=== PATIENT | female | born 1995 | race Caucasian/White ===

== ENCOUNTER 2024-04-01 13:53 | Emergency (ER) | payer OTHER, SELFPAY ==
[2024-04-01 13:57] VITALS: BP 130/85
[2024-04-01 14:12] VITALS: BP 121/72
--- NOTE | 2024-04-01 14:18 | ED.GENMED ---
History of Present Illness
General
Chief Complaint: Chest Pain
Source: patient
Time Seen by Provider: 04/01/24 14:06
History of Present Illness
History of Present Illness:
28yoF with a history of POTS presenting with her mother for evaluation of chest pain. Symptoms began last night while she was lying in bed. She reports an intense sharp, stabbing pain in the left side of her chest. Her heart rate was elevated in the
130s last night when her symptoms began. She reports lightheadedness yesterday but denies any syncope. The pain continues today but is now mild. The pain is worse with movement and activity. She also reports shortness of breath. Patient was seen at
urgent care prior to arrival and was sent to the ED for evaluation. Patient is on oral contraceptives. No recent travel or illness.
Phy Exam
General Physical Exam
General Presentation: well appearing and no apparent distress
General age: appears stated age
General Skin: warm and dry
General Habitus: normal
General Mental: alert
Cardiovascular Exam
Cardiovascular Exam: regular rate/rhythm, no edema and no murmur
Pulmonary Exam
Pulmonary Exam: lungs clear, no respiratory distress, no rales, no crackles, no wheezing and other (+Mild tenderness to the L chest. No skin changes.)
David Coma Scale
Eye Opening: Spontaneous
Verbal Response: Oriented
Motor Response: Obeys Commands
GCS Total Score: 15
Skin Exam
Skin Exam: normal color and warm/dry
Psychiatric Exam
Psychiatric Exam: normal mood/affect
Scores
Heart Score for Chest Pain Patients
STEMI patient?: No
History: Slightly or Non-Suspicious
ECG: Normal
Age: </= 45 years
Risk Factors: No Risk Factors
Troponin: </= Normal Limit
Heart Score for Chest Pain Patients: 0
Heart Score Risk: 2.5% MACE over next 6 weeks
Course
Orders/Labs/Results
Orders:
Orders
04/01/24 13:54
Electrocardiogram (*1) Urgent
Reason for Study: Chest Pain
EKG- Treatment ONCE
04/01/24 14:18
Cardiac Monitoring- Treatment ONCE
Test Result ONCE
CR Chest - 2 Views Urgent
Comment:
Reason For Exam: CP
04/01/24 14:21
0.9% Sodium Chloride 1000 ml [Nss] 1,000 ml IV BOLUS
04/01/24 14:23
Complete Blood Count/With Diff Urgent
Comprehensive Metabolic Panel Urgent
D-Dimer Urgent
HCG, Serum Qualitative Screen Urgent
Troponin I Urgent
Abnormal Lab Results
04/01/24
14:23
RBC 3.95 L 10^6/uL
(4.20-5.40)
Hct 34.4 L %
(37.0-47.0)
Absolute Monos (auto) 0.7 H 10^3/uL
(0.1-0.6)
Monocytes % 9.9 H %
(1.7-9.3)
04/01/24 14:23
04/01/24 14:23
Vital Signs
Initial and Last Documented VS:
Initial Vital Signs
Temp Pulse Resp BP Pulse Ox
98.1 F 77 18 130/85 99
04/01/24 13:57 04/01/24 13:57 04/01/24 13:57 04/01/24 13:57 04/01/24 13:57
Last Documented Vital Signs
Temp Pulse Resp BP Pulse Ox
98.1 F 75 19 121/72 100
04/01/24 13:57 04/01/24 14:45 04/01/24 14:45 04/01/24 14:12 04/01/24 14:45
MDM/Problems Addressed
Differential Diagnosis Includes:
28yoF here with L sided chest pain x 1 day. Associated with SOB and lightheadedness. Sent here by urgent care. Hx of POTS. She is afebrile and hemodynamically stable. She is well appearing in no distress. There is mild L sided chest wall tenderness
on exam. Exam is otherwise reassuring. Differential diagnosis includes but is not limited to: costochondritis, pericarditis, PE, less likely ACS
Initial ED plan: Check cardiac labs, D-dimer, EKG, and CXR. IV fluid bolus.
*EKG
Interpreted by ED Provider?: Yes
EKG Intrepretation Date: 04/01/24
Heart Rate: 72
Rate: normal
Rhythm: sinus
[place]: normal axis
Interval: normal interval
QRS Pattern: normal QRS and low voltage
Ischemia: no ischemia
*Critical Care Note
Total Time (30-74mins, 75-104mins- exclusive of procedures): Not Applicable
Update Note
Update Note:
Labs overall unremarkable. EKG shows normal sinus rhythm without ischemic changes and troponin is within normal limits. D-dimer normal making PE very unlikely. Chest x-ray is clear without infiltrates. No telemetry events during ED stay. HEART
score is 0. No indication for admission. Advised f/u with PCP and ED return precautions discussed. She was discharged in stable condition.
ED Attending Note
-
Portions of this chart may have been created with voice recognition software.� Occasional wrong word or��sound alike� substitutions may have occurred due to the inherent limitations of voice recognition software.
Discharge Plan
Departure
Patient Disposition: Home (Routine Discharge)
Date of Disposition: 04/01/24
Time of Disposition: 15:54
Patient with high blood pressure during this ER visit?: No
Discharge Problem:
Chest pain
Instructions: Chest Pain PCP Follow Up
Referrals:
Saba Lawton PA-C [Family Provider] -
Activity Restrictions/Additional Instructions:
Please follow-up with your family doctor. Return to the ER with any new or worsening symptoms.
Interventions
Interventions:
*Risk Screen - Suicide Last Done: 04/01/24 13:55
*General Assessment Last Done: 04/01/24 13:57
*Neglect/Abuse Screening Last Done: 04/01/24 14:08
ED- Fall Risk Assessment Last Done: 04/01/24 14:08
*ED COVID-19 Vaccine History Last Done: 04/01/24 14:08
*Nursing Disposition Last Done: 04/01/24 16:02
ED- Cardiac Assessment Last Done: 04/01/24 14:08
Discharge Date and Time
Discharge Date/Time: 04/01/24 16:03
Print Language: CITIZ[place]
[2024-04-01] MEDS: NSS 1000 IV (14:23)
[2024-04-01 14:32] LABS: % Basophils 0.7 % (0-2); % Eosinophils 1.9 % (0-6); % Immature Granulocytes 0.1 % (0-0.5); % Lymphocytes 31.6 % (20.5-51.1); % Monocytes 9.9 % (1.7-9.3); % Neutrophils 55.8 % (42.2-75.2); Absolute Basophils 0.1 10^3/uL (0-0.2); Absolute Eosinophils 0.1 10^3/uL (0-0.7); Absolute Lymphocytes 2.2 10^3/uL (1.2-3.4); Absolute Monocytes 0.7 10^3/uL (0.1-0.6); Absolute Neutrophils 3.8 10^3/uL (1.4-6.5); Hematocrit 34.4 % (37.0-47.0); Mean Corp Hgb Conc. 34.9 g/dL (33.0-37.0); Mean Corpuscular Hgb 30.4 pg (27.0-31.0); Mean Corpuscular Volume 87.1 fL (81.0-99.0); Mean Platelet Volume 9.5 fL (7.4-10.4); Nucleated Red Blood Cells % 0 %; Platelet Count 276 10^3/uL (130-400); Red Blood Cell Count 3.95 10^6/uL (4.20-5.40); Red Cell Dist. Width 12.3 % (11.5-14.5); White Blood Cell Count 6.9 10^3/uL (4.8-10.8)
[2024-04-01 14:42] LABS: HCG, Serum Qualitative Screen Negative
[2024-04-01 14:43] LABS: D-Dimer < 0.27 ug/mlFEU (0.00-0.50)
[2024-04-01 14:47] LABS: ALT (SGPT) 12 U/L (0-35); AST (SGOT) 22 U/L (14-36); Albumin 4.1 g/dl (3.5-5.0); Alkaline Phosphatase 51 U/L (38-126); Blood Urea Nitrogen 14 mg/dl (7-17); Calcium 9.8 mg/dl (8.4-10.2); Carbon Dioxide 22 mmol/L (22-30); Chloride 106 mmol/L (98-107); Glucose 88 mg/dl (70-99); Potassium 4.3 mmol/L (3.5-5.1); Sodium 139 mmol/L (135-145); Total Bilirubin 0.4 mg/dl (0.2-1.3); Total Protein 6.7 g/dl (6.3-8.2); eGFR > 60.00
[2024-04-01 14:55] LABS: Troponin I < 0.012 ng/ml
== END 2024-04-01 16:03 | disposition home or self-care (01) ==
LOC: EMR 13:53
PROVIDERS: Physician Assistant; EMERGENCY PHYSICIAN Emergency Medicine; FAMILY PHYSICIAN Physician Assistant
DX: R07.89 Other chest pain (principal)
CPT/HCPCS: 99283; 96360; 71046; 80053; 84484; 84703; 85025; 85379; 93005